=== PATIENT | male | born 1960 | race Caucasian/White ===

== ENCOUNTER 2025-01-30 20:54 | Emergency (ER) | payer OTHER, BC ==
[~2025-01-30] VITALS: Ht 175.3 cm; Wt 76.4 kg
[~2025-01-30 20:54] MED LIST: ALLEGRA ALLERG180 MG PO; IBUPROFEN200 MG PO
[2025-01-30] MEDS ORDERED: COZAAR50 MG PO (21:03)
[2025-01-30] MEDS ORDERED: INVOKANA300 MG PO (21:04)
[2025-01-30] MEDS ORDERED: LIPITOR10 MG PO (21:04)
[2025-01-30] MEDS ORDERED: DIPHTH,PERTUSS(ACELL),TET VAC 0.5 ML SYRINGE IM ONE (21:15)
[2025-01-30] MEDS ORDERED: TRAMADOL HCL 50 MG TAB PO ONE (21:45)
[2025-01-30] MEDS ORDERED: HYDROCODON-ACE1 EA10 PO (22:33)
[2025-01-30] MEDS ORDERED: HYDROCODONE BIT/ACETAMINOPHEN 5/325 MG 1 TAB HOME.PACK PO ONE (22:45)
[2025-01-30 22:57] VITALS: BP 142/67
== END 2025-01-30 22:58 | disposition home or self-care (01) ==
LOC: ED 20:54
DX: S22.31XA Fracture of one rib, right side, initial encounter for closed fracture (principal); E11.9 Type 2 diabetes mellitus without complications; I10 Essential (primary) hypertension; Z88.0 Allergy status to penicillin; V29.99XA Rider (driver) (passenger) of other motorcycle injured in unspecified traffic accident, initial encounter
CPT/HCPCS: 71101; 73060; 99283; A9270